=== PATIENT | female | born 1980 | race Caucasian/White ===

== ENCOUNTER → 2017-03-08 | Outpatient (CLI) | payer OTHER | LOC: RAD 12:34 | PROVIDERS: ATTEND Obstetrics & Gynecology | DX: Z12.31 Encounter for screening mammogram for malignant neoplasm of breast (principal) | CPT/HCPCS: 77067 ==

== ENCOUNTER 2018-04-18 07:22 | Inpatient (IN) | payer OTHER ==
[~2018-04-18] VITALS: Ht 165.1 cm; Wt 76.7 kg
[2018-04-18] VITALS (64 sets, daily range): BP systolic 103–159; BP diastolic 54–93
--- OUTSIDE RECORDS SUMMARY | 2018-04-18 07:29 | XMS REPORT | Continuity of Care Document ---
Author Author [facility] Organization [facility] Address Unknown Phone Unavailable Allergies There is no data. Medications There is no data. Problems Date Dx Coded Attending Type Code Diagnosis Diagnosed By 03/09/2017 GRANT ALVARADO MD, Ot Z12.31 ENCNTR SCREEN MAMMOGRAM FOR MALIGNANT NE 03/14/2017 GRANT ALVARADO MD, Ot Z12.31 ENCNTR SCREEN MAMMOGRAM FOR MALIGNANT NE 03/26/2017 GRANT ALVARADO MD, Ot Z12.31 ENCNTR SCREEN MAMMOGRAM FOR MALIGNANT NE Procedures There is no data. Results There is no data. Encounters ACCT No. Visit Date/Time Discharge Status Pt. Type Provider Facility Loc./Unit Complaint [id number] 03/08/2017 12:34:00 03/08/2017 23:59:59 CLS Outpatient GRANT ALVARADO MD [facility] RAD SCREENING [id number] 12/20/2012 09:19:00 12/20/2012 23:59:59 CLS Outpatient [id number] 05/27/2017 16:49:10 05/27/2017 23:59:59 CLS Outpatient
[2018-04-18] MEDS ORDERED: AMPICILLIN FOR IV USE 2,000 MG in NS (IVPB) 50 ML IV NR (07:45)
--- NOTE | 2018-04-18 07:45 | History & Physical ---
History and Physical Date Seen by Provider: Apr 18, 2018 Time Seen by Provider: 07:42 This patient is a 37-year-old G1 white female with an EDC of April 20, 2018. Admitted now for induction of labor at 39-5/7 weeks. history is significant GBS positive culture 35 weeks. Patient denies rupture membranes or bleeding. Has had no problems with his to date. Allergies are none Medications are vitamins Medical social and surgical histories are per the antepartum record HEENT exam is normal Neck supple no lymphadenopathy no thyromegaly Abdomen gravid soft nontender nondistended Extremities show no clubbing cyanosis. There is no Homans sign. Pelvic exam is pending Assessment and plan term at 39+ weeks' gestation admitted for induction of labor. Plan is for GBS prophylaxis with ampicillin TIUP - Elective IOL Allergies and Home Medications Allergies Coded Allergies: No Known Drug Allergies (Unverified , 04/18/18) Patient Home Medication List Home Medication List Reviewed: Yes GRANT ALVARADO MD Apr 18, 2018 7:45 am
[2018-04-18 07:58] LABS: BASOPHILS % (AUTO) 0 % (0-10); EOSINOPHILS # (AUTO) 0.1 10^3/uL (0.0-0.3); EOSINOPHILS % (AUTO) 1 % (0-10); HEMATOCRIT 32 % (35-52); LYMPHOCYTES # (AUTO) 1.6 X 10^3 (1.0-4.0); LYMPHOCYTES % (AUTO) 21 % (12-44); MEAN CORPUSCULAR HEMOGLOBIN 31 PG (25-34); MEAN CORPUSCULAR HGB CONC 35 G/DL (32-36); MEAN CORPUSCULAR VOLUME 89 FL (80-99); MEAN PLATELET VOLUME 11.8 FL (7.4-10.4); MONOCYTES # (AUTO) 0.6 X 10^3 (0.0-1.0); MONOCYTES % (AUTO) 8 % (0-12); NEUTROPHILS # (AUTO) 5.3 X 10^3 (1.8-7.8); NEUTROPHILS % (AUTO) 69 % (42-75); PLATELET COUNT 115 10^3/uL (130-400); RED BLOOD COUNT 3.57 10^6/uL (4.35-5.85); RED CELL DISTRIBUTION WIDTH 14.2 % (10.0-14.5); WHITE BLOOD COUNT 7.6 10^3/uL (4.3-11.0)
[2018-04-18] MEDS ORDERED: CATHETER FLUSH 10 ML SYR IV PRN ×2 (08:00→13:15)
[2018-04-18] MEDS: D5 LR IV SOLUTION 1,000 ML IV SCH ×2 (08:11→15:45)
[2018-04-18] MEDS: OXYTOCIN/NORMAL SALINE 500 ML IV SCH ×2 (08:12→23:18)
[2018-04-18] MEDS ORDERED: PNV11TAB5 PO (08:17)
[2018-04-18] MEDS ORDERED: FLU QUADRIvalent (5+ YOA) 2018-2019 (AFLURIA) 0.5 ML IM ONE (08:45)
[2018-04-18] MEDS ORDERED: LACTATED RINGERS 1,000 ML IV ONE ×2 (11:56→13:04)
[2018-04-18] MEDS: AMPICILLIN FOR IV USE 1,000 MG in NS (IVPB) 50 ML IV SCH ×3 (11:57→20:10)
[2018-04-18] MEDS ORDERED: SUFENTA 0.6MCG/ML BUPIVA 0.125 100 ML ONE (11:57)
[2018-04-18] MEDS ORDERED: BUPIVACAINE 0.25% 30 ML (SENSORCAINE) VIAL ONE (12:33)
[2018-04-18] MEDS ORDERED: fentaNYL INJECTION 100 MCG/2 ML AMP ONE (12:34)
[2018-04-18] MEDS ORDERED: NALOXONE 0.4 MG/ML 1 ML (NARCAN) VIAL IV PRN (13:15)
[2018-04-18] MEDS ORDERED: EPIDURAL (SUFENTA 0.6MCG/ML BUPIVA 0.125%) 100 ML BAG EPI SCH (13:15)
[2018-04-18] MEDS ORDERED: CITRIC ACID/SOB CIT (BICITRA) 30 ML UDC PO ONE (17:30)
[2018-04-18] MEDS ORDERED: LIDOCAINE/EPI 2% 1:200,00 (XYLOCAINE) 10 ML VIAL ONE ×2 (20:20→20:22)
[2018-04-18] MEDS ORDERED: IBUPROFEN 800 MG (MOTRIN) TAB PO ONE (23:13)
[2018-04-18] MEDS ORDERED: BENZOCAINE/MENTHOL (DERMOPLAST) 56 ML CAN TP PRN (23:15)
[2018-04-18] MEDS ORDERED: ONDANSETRON 4 MG/2 ML (SDV) Z0FRAN IVP PRN (23:15)
[2018-04-18] MEDS ORDERED: OXYTOCIN/NORMAL SALINE 500 ML IV SCH (23:15)
[2018-04-18] MEDS ORDERED: oxyCODONE/APAP 5/325MG (PERCOCET 5) TABLET PO PRN (23:15)
[2018-04-18] MEDS ORDERED: TETANUS,DIPTH,PERTUSS P/F (BOOSTRIX) 0.5 ML VIAL IM ONE (23:15)
[2018-04-18] MEDS ORDERED: KETOROLAC 30 MG/ML VIAL IV SCH (23:15)
[2018-04-18] MEDS: IBUPROFEN 800 MG (MOTRIN) TAB PO SCH (23:19)
[2018-04-19] VITALS: BP 136/72
[2018-04-19 00:16] VITALS: BP 125/63
[2018-04-19 00:30] VITALS: BP 128/72
--- NOTE | 2018-04-19 01:42 | OPERATIVE REPORT ---
In DATE OF SERVICE: 04/18/2018 DELIVERY NOTE The patient delivered by term spontaneous vaginal delivery a viable female with Apgars of 9 and 9 at 1 and 5 minutes respectively, weight of 9 pounds and 10 ounces. time of 2151. Cord blood pH that is pending. There was a mild shoulder dystocia encountered that was easily released. The patient pushed the baby down on the perineum. There was obviously inadequate room at the introitus for delivery. Episiotomy was performed under the epidural, augmented with local analgesia using lidocaine and the perineal body. Episiotomy was performed. The mom continued to push as the baby delivered. A fourth-degree extension of the episiotomy occurred. The head delivered over the perineum as the fourth-degree occurred and then there was a mild shoulder dystocia that was relieved with Joe and suprapubic pressure to the patient's right from her left rotating the shoulders just a few degrees and then the delivery was accomplished in less than 20 seconds after delivery of the head, the was bulb suctioned on completion of delivery. The was somewhat shell-shocked initially, but recovered promptly. Again, Apgars were 9 and 9. The infant moved all extremities, had excellent tone and reflexes within a few seconds of being dried and stimulated after delivery. had a lusty cry and was quickly pink. The umbilical cord when pulseless was doubly clamped, the father cut the cord, the baby was passed to mom's abdomen. The placenta delivered spontaneously Villalba. It was quite large and it was a battledore placenta with a 3-vessel cord. The cervix, vagina, rectum and perineum were examined and found intact, except for the fourth-degree extension of the midline episiotomy that was repaired with 3 separate sutures of 3-0 Vicryl Rapide using a suture on the rectal mucosa closing that in a running subcuticular manner to rich the mucosal edge back into the rectum. The sphincter muscle was repaired with the second suture and then a third suture was used to repair the vaginal mucosa and the perineal skin. Good reapproximation was achieved. Good hemostasis was achieved. The patient tolerated the delivery and the repair well. Estimated blood loss was around 400 mL for the delivery and the repair. Sponge and needle counts were correct on completion of delivery and repair. The patient remained in the LDR for recovery. The baby remained with the mom. Job ID: [id number] DocumentID: [id number] Dictated Date: 04/18/2018 22:43:22 Rug Drying Machine Operator Date: 04/19/2018 01:41:53 Dictated By: GRANT ALVARADO MD MTDD
[2018-04-19 04:10] VITALS: BP 108/66
[2018-04-19] MEDS: AMPICILLIN FOR IV USE 1,000 MG in NS (IVPB) 50 ML IV SCH ×2 (06:30→06:32)
[2018-04-19] MEDS: D5 LR IV SOLUTION 1,000 ML IV SCH ×2 (06:30→06:32)
--- NOTE | 2018-04-19 07:35 | Progress Note-Standard ---
Standard Progress Note Progress Notes/Assess & Plan Date Seen by a Provider: Apr 19, 2018 Time Seen by a Provider: 07:34 Progress/Assessment & Plan This patient is without complaint. She is ambulating, voiding, tolerating oral intake well has good pain control. Vital Signs 04/19/18 04:10 Temp 98.2 Pulse 88 Resp 18 B/P (MAP) 108/66 (80) Pulse Ox 95 O2 Delivery Room Air Vital signs are stable. Patient is afebrile. Fundus is firm below the umbilicus and nontender. Extreme show no clubbing or cyanosis. There is no Homans sign. Assessment and plan post arm day number 1 doing well plan is routine convalescence care GRANT ALVARADO MD Apr 19, 2018 7:35 am
[2018-04-19] MEDS ORDERED: DOCU100C37 PO (07:37)
[2018-04-19] MEDS ORDERED: IBUP-1780 PO (07:37)
[2018-04-19] MEDS ORDERED: OXYC1TAB87 PO (07:37)
--- NOTE | 2018-04-19 07:41 | Discharge Instructions ---
Discharge Instructions Discharge Medications New, Converted or Re-Newed RX: RX on Chart Patient Instructions Patient Instructions: As directed Return to The Hospital For: As directed Activity & Diet Discharge Diet: No Restrictions Activity as Tolerated: No Orders-Post D/C & Referrals Follow Up Appt: Call to make follow up appt. for patient in 4 weeks. Activity Per routine post vaginal delivery instructions. Diet as tolerated Patient may shower or tub bathe as desired. GRANT ALVARADO MD Apr 19, 2018 7:40 am
[2018-04-19 08:00] VITALS: BP 119/75
[2018-04-19] MEDS: DOCUSATE SODIUM 100 MG (COLACE) CAP PO SCH ×2 (08:00→20:58)
[2018-04-19] MEDS ORDERED: IBUPROFEN 800 MG (MOTRIN) TAB PO ONE ×2 (11:30→17:56)
[2018-04-19] MEDS ORDERED: IBUPROFEN 600 MG (MOTRIN) TAB PO ONE (11:30)
[2018-04-19] MEDS: IBUPROFEN 800 MG (MOTRIN) TAB PO SCH ×2 (11:34→23:59)
--- NOTE | 2018-04-19 15:24 | Anesthesia-Regional Post-Op ---
Regional Patient Condition Mental Status: Alert, Oriented x3 Circulation: Same as Pre-Op Headache: Absent Sensation: Full Recovery Motor Block: Absent Post Op Complications Complications None Follow Up Care/Instructions Patient Instructions None needed. Anesthesia/Patient Condition Patient is doing well, no complaints, stable vital signs, no apparent adverse anesthesia problems. DUONG BARON DO Apr 19, 2018 15:24
[2018-04-19 20:55] VITALS: BP 122/78
[2018-04-20 03:04] VITALS: BP 113/69
[2018-04-20] MEDS: IBUPROFEN 800 MG (MOTRIN) TAB PO SCH (05:57)
--- NOTE | 2018-04-20 07:41 | Progress Note-Standard ---
Standard Progress Note Progress Notes/Assess & Plan Date Seen by a Provider: Apr 20, 2018 Time Seen by a Provider: 07:39 Progress/Assessment & Plan This patient is without complaint. She is ambulating, voiding, tolerating oral intake well has good pain control. Vital Signs 04/19/18 04:10 Temp 98.2 Pulse 88 Resp 18 B/P (MAP) 108/66 (80) Pulse Ox 95 O2 Delivery Room Air Vital signs are stable. Patient is afebrile. Fundus is firm below the umbilicus and nontender. Extreme show no clubbing or cyanosis. There is no Homans sign. Assessment and plan post arm day number 1 doing well plan is routine convalescence care April 20, 2018 Patient is without complaint. She is ambulating, voiding, tolerating oral intake well, patient is requesting discharge home. Patient has good pain control. Vital Signs 04/20/18 03:04 Temp 98.7 Pulse 79 Resp 18 B/P (MAP) 113/69 (84) Pulse Ox 97 O2 Delivery Room Air Vital signs are stable. Patient is afebrile. Fundus is firm below the umbilicus and nontender. John show no clubbing cyanosis. There is no Homans sign. Assessment and plan day number 2 status post spontaneous vaginal delivery doing well. Plan is for discharge home Final Diagnosis TSVD 39 WEEKS GRANT ALVARADO MD Apr 20, 2018 7:41 am
[2018-04-20] MEDS ORDERED: WITCH HAZEL(TUCKS) 40 EA JAR ONE (08:43)
[2018-04-20] MEDS ORDERED: DIBUCAINE (NUPERCAINAL) 1% OINT 30 GM ONE (08:43)
[2018-04-20] MEDS ORDERED: TETANUS,DIPTH,PERTUSS P/F (BOOSTRIX) 0.5 ML VIAL IM ONE (08:44)
[2018-04-20] MEDS: DOCUSATE SODIUM 100 MG (COLACE) CAP PO SCH (08:44)
[2018-04-20] MEDS ORDERED: FLU QUADRIvalent (5+ YOA) 2018-2019 (AFLURIA) 0.5 ML IM ONE (08:44)
[2018-04-20 08:45] VITALS: BP 121/76
[2018-04-20] MEDS ORDERED: WITCH HAZEL(TUCKS) 40 EA JAR TOP PRN (09:00)
[2018-04-20] MEDS ORDERED: DIBUCAINE (NUPERCAINAL) 1% OINT 30 GM TOP PRN (09:00)
[2018-04-20 10:55] VITALS: BP 121/76
== END 2018-04-20 10:55 | disposition home or self-care (01) | DRG 775 ==
LOC: LDRP 07:22
PROVIDERS: ADMIT Obstetrics & Gynecology; ATTEND Obstetrics & Gynecology
PROC: 10E0XZZ Delivery of Products of Conception, External Approach (ICD-10-PCS; principal; 2018-04-19)
PROC: 0DQP0ZZ Repair Rectum, Open Approach (ICD-10-PCS; 2018-04-19)
PROC: 0W8NXZZ Division of Female Perineum, External Approach (ICD-10-PCS; 2018-04-19)
DX: O66.0 Obstructed labor due to shoulder dystocia (principal); O70.3 Fourth degree perineal laceration during delivery; O43.193 Other malformation of placenta, third trimester; O99.820 Streptococcus B carrier state complicating pregnancy; Z3A.39 39 weeks gestation of pregnancy; Z37.0 Single live birth; Z23 Encounter for immunization
CPT/HCPCS: 36415; 85025; 86850; 86900; 86901; 90686; 90715

== ENCOUNTER 2018-05-28 07:22 | Emergency (ER) | payer OTHER ==
[~2018-05-28] VITALS: Ht 165.1 cm; Wt 56.7 kg
[~2018-05-28 07:22] MED LIST: DOCU100C37 PO; IBUP-1780 PO; OXYC1TAB87 PO; PNV11TAB5 PO
--- OUTSIDE RECORDS SUMMARY | 2018-05-28 07:27 | XMS REPORT | Continuity of Care Document ---
Author Author [facility] Organization [facility] Address Unknown Phone Unavailable Allergies Active Description Code Type Severity Reaction Onset Reported/Identified Relationship to Patient Clinical Status Yes No Known Drug Allergies [id number] Drug Allergy Unknown N/A 04/18/2018 Medications There is no data. 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, THIRD TR 04/20/2018 GRANT ALVARADO MD, Ot O66.0 OBSTRUCTED LABOR DUE TO SHOULDER DYSTOCI 04/20/2018 GRANT ALVARADO MD, Ot O70.3 FOURTH DEGREE PERINEAL LACERATION DURING 04/20/2018 GRANT ALVARADO MD, Ot O99.820 STREPTOCOCCUS B CARRIER STATE COMPLICATI 04/20/2018 GRANT ALVARADO MD, Ot Z23 ENCOUNTER FOR IMMUNIZATION 04/20/2018 GRANT ALVARADO MD, Ot Z37.0 SINGLE LIVE 04/20/2018 GRANT ALVARADO MD, Ot Z3A.39 39 WEEKS GESTATION OF Procedures Code Description Performed By Performed On [id number] REPAIR RECTUM, OPEN APPROACH 04/19/2018 [id number] DIVISION OF FEMALE PERINEUM, EXTERNAL AP 04/19/2018 [id number] DELIVERY OF PRODUCTS OF CONCEPTION, EXTE 04/19/2018 Results Test Result Range Complete blood count (CBC) with automated white blood cell (WBC) differential - 04/18/18 07:41 Blood leukocytes automated count (number/volume) 7.6 10*3/uL 4.3-11.0 Blood erythrocytes automated count (number/volume) 3.57 10*6/uL 4.35-5.85 Venous blood hemoglobin measurement (mass/volume) 11.0 g/dL 11.5-16.0 Blood hematocrit (volume fraction) 32 % 35-52 Automated erythrocyte mean corpuscular volume 89 [foz_us] 80-99 Automated erythrocyte mean corpuscular hemoglobin (mass per erythrocyte) 31 pg 25-34 Automated erythrocyte mean corpuscular hemoglobin concentration measurement ( mass/volume) 35 g/dL 32-36 Automated erythrocyte distribution width ratio 14.2 % 10.0-14.5 Automated blood platelet count (count/volume) 115 10*3/uL 130-400 Automated blood platelet mean volume measurement 11.8 [foz_us] 7.4-10.4 Automated blood neutrophils/100 leukocytes 69 % 42-75 Automated blood lymphocytes/100 leukocytes 21 % 12-44 Blood monocytes/100 leukocytes 8 % 0-12 Automated blood eosinophils/100 leukocytes 1 % 0-10 Automated blood basophils/100 leukocytes 0 % 0-10 Blood neutrophils automated count (number/volume) 5.3 10*3 1.8-7.8 Blood lymphocytes automated count (number/volume) 1.6 10*3 1.0-4.0 Blood monocytes automated count (number/volume) 0.6 10*3 0.0-1.0 Automated eosinophil count 0.1 10*3/uL 0.0-0.3 Automated blood basophil count (count/volume) 0.0 10*3/uL 0.0-0.1 Blood type T Indirect antibody screen panel - 04/18/18 07:41 ABO+Rh group AP NRG Transfusion band number [id number] NRG Blood group antibody screen NEGATIVE NRG Encounters ACCT No. Visit Date/Time Discharge Status Pt. Type Provider Facility Loc./Unit Complaint [id number] 04/18/2018 07:22:00 04/20/2018 10:55:00 DIS Inpatient CHRISTIANO PRINCE, GRANT Mcgregor [facility] LDRP INDUCTION OF LABOR [id number] 03/08/2017 12:34:00 03/08/2017 23:59:59 CLS Outpatient CHRISTIANO PRINCE, GRANT Mcgregor [facility] RAD SCREENING [id number] 12/20/2012 09:19:00 12/20/2012 23:59:59 CLS Outpatient [id number] 05/27/2017 16:49:10 05/27/2017 23:59:59 CLS Outpatient
[2018-05-28] MEDS ORDERED: CEPH-507 PO (08:06)
[2018-05-28] MEDS ORDERED: NS (IVPB) 50 ML ONE (08:20)
[2018-05-28] MEDS ORDERED: cefTRIAXone 2 GM/20 ML for IV (ROCEPHIN) ONE (08:20)
[2018-05-28] MEDS ORDERED: fentaNYL INJECTION 100 MCG/2 ML AMP ONE (08:20)
[2018-05-28] MEDS ORDERED: cefTRIAXone FOR IV USE 2,000 MG in NS (IVPB) 50 ML IV ONE (08:30)
[2018-05-28] MEDS ORDERED: fentaNYL INJECTION 100 MCG/2 ML AMP IVP ONE (08:30)
[2018-05-28 08:32] LABS: BASOPHILS % (AUTO) 0 % (0-10); EOSINOPHILS # (AUTO) 0.6 10^3/uL (0.0-0.3); EOSINOPHILS % (AUTO) 7 % (0-10); HEMATOCRIT 36 % (35-52); HEMOGLOBIN 11.9 G/DL (11.5-16.0); LYMPHOCYTES # (AUTO) 0.5 X 10^3 (1.0-4.0); LYMPHOCYTES % (AUTO) 7 % (12-44); MEAN CORPUSCULAR HEMOGLOBIN 29 PG (25-34); MEAN CORPUSCULAR HGB CONC 33 G/DL (32-36); MEAN CORPUSCULAR VOLUME 88 FL (80-99); MEAN PLATELET VOLUME 11.2 FL (7.4-10.4); MONOCYTES # (AUTO) 0.6 X 10^3 (0.0-1.0); MONOCYTES % (AUTO) 7 % (0-12); NEUTROPHILS # (AUTO) 5.8 X 10^3 (1.8-7.8); NEUTROPHILS % (AUTO) 78 % (42-75); PLATELET COUNT 122 10^3/uL (130-400); RED BLOOD COUNT 4.13 10^6/uL (4.35-5.85); RED CELL DISTRIBUTION WIDTH 14.1 % (10.0-14.5); WHITE BLOOD COUNT 7.4 10^3/uL (4.3-11.0)
--- NOTE | 2018-05-28 08:33 | ED Integumentary General ---
General Chief Complaint: Skin/Wound Problems Stated Complaint: CLOGGED DUCT Nursing Triage Note: PT CO OF L BREAST PAIN, PT IS PUMPING BREAST MILK, PT STATES HAS HAD FEVER, L BREAST IS REDDEND, WARM TO TOUCH, PAINFUL. PT STATES HAS BEEN ON KEFLEX 500MG PO SINCE TUESDAY AND MOTRIN 800MG. PT STATES FEELS WORSE AND LOOKS LIKE REDDEND AREA GETTING BIGGER PT IS 6 WEEKS POST DELIVERY Source: patient, family Exam Limitations: no limitations History of Present Illness Date Seen by Provider: May 28, 2018 Time Seen by Provider: 08:29 Initial Comments This 38-year-old white female presents with progressive mastitis of the left breast over the last 2 days. Patient has been on Keflex 500 mg twice a day since onset without improvement. ADM patient is pumping her left breast. Although painful she has been successful with this operation. The patient is been using ibuprofen with progressively less success. She had a fever on Tuesday. The patient denies associated headache or stiff neck, photophobia, productive cough, nausea, vomiting, or diarrhea. Allergies and Home Medications Allergies Coded Allergies: No Known Drug Allergies (Unverified , 04/18/18) Home Medications Cephalexin 500 Mg Capsule, 500 MG PO BID, (Reported) Ibuprofen 800 Mg Tablet, 800 MG PO Q6H Prescribed by: GRANT FRANCIS on 04/19/18 0737 Ilf795/FA/Omega3/Dha/Fish Oil 1 Each Tab.chew, 2 EACH PO DAILY, (Reported) Patient Home Medication List Home Medication List Reviewed: Yes Review of Systems Review of Systems Constitutional: fever (on Tuesday.) EENTM: No ear pain Respiratory: No cough Cardiovascular: No chest pain Gastrointestinal: no symptoms reported; No abdominal pain Genitourinary: no symptoms reported : No Musculoskeletal: no symptoms reported Skin: see HPI, other (mastitis left breast) Psychiatric/Neurological: No Symptoms Reported Endocrine: No Symptoms Reported Hematologic/Lymphatic: No Symptoms Reported Past Zrdhmbu-Junjwo-Vhhtav Hx Past Med/Social Hx: Reviewed Nursing Past Med/Soc Hx Patient Social History Alcohol Use: Occasionally Uses Recreational Drug Use: No Smoking Status: Former Smoker Type Used: Cigarettes Former Smoker, Quit: Jan 29, 2006 Recent Foreign Travel: No Contact w/Someone Who Travel: No Recent Infectious Disease Expo: No Recent Hopitalizations: No Immunizations Up To Date PED Vaccines UTD: Yes Seasonal Allergies Seasonal Allergies: Yes Past Medical History Surgeries: Yes ([place] Teeth) Respiratory: No Cardiac: No Neurological: No : No Female Reproductive Disorders: Denies Sexually Transmitted Disease: No HIV/AIDS: No Genitourinary: No Gastrointestinal: No Musculoskeletal: No Endocrine: No HEENT: No Loss of Vision: Denies Hearing Impairment: Denies Cancer: No Psychosocial: No Integumentary: No Blood Disorders: No Adverse Reaction/Blood Tranf: No Family Medical History Alcoholism 19 FATHER Alzheimer's disease Grandparents (Maternal Grandfather) Asthma 19 MOTHER Cataracts Grandparents (Maternal Grandfather) Colon cancer Grandparents (Paternal Grandmother?) Completed stroke Grandparents (Maternal Grandmother) Drug abuse 19 FATHER (Narcotics) FH: leukemia Grandparents (Paternal Grandparents) Hypercholesterolemia 19 FATHER Grandparents (Paternal Grandfather) Hypertension 19 FATHER Grandparents (Paternal Grandfather) Neoplasm Grandparents (Paternal Grandfather) Not obtainable due to adoption Respiratory disorder Grandparents (Paternal Grandfather-COPD) Visual disorder Grandparents (Maternal Grandfather-Cataracts) Physical Exam Vital Signs Vital Signs - First Documented 05/28/18 07:50 Temp 97.8 Pulse 88 Resp 18 B/P (MAP) 108/66 (80) Pulse Ox 97 Capillary Refill : Less Than 3 Seconds General Appearance: WD/WN, mild distress HEENT: normal ENT inspection Neck: full range of motion, normal inspection Cardiovascular: regular rate, rhythm Respiratory: lungs clear, normal breath sounds Gastrointestinal: non tender, soft Back: normal inspection Extremities: normal range of motion, normal inspection Neurologic/Psychiatric: no motor/sensory deficits, alert, normal mood/affect, oriented x 3 Skin: normal color, warm/dry, other (there is inflammation to the left breast extending from the nipple and pasty really to approximately a 6 cm diameter at the left breast. There is tenderness to palpation. There is no fluctuance appreciated. NextI expressed a small amount of milk from the a.m. left nipple and obtained a culture and sensitivity.) Skin Problem Location: other (cellulitis left breast) Skin Problem Character: erythema, tenderness Progress/Results/Core Measures Results/Orders Lab Results Laboratory Tests Test 05/28/18 08:15 Range/Units White Blood Count 7.4 4.3-11.0 10^3/uL Red Blood Count 4.13 L 4.35-5.85 10^6/uL Hemoglobin 11.9 11.5-16.0 G/DL Hematocrit 36 35-52 % Mean Corpuscular Volume 88 80-99 FL Mean Corpuscular Hemoglobin 29 25-34 PG Mean Corpuscular Hemoglobin Concent 33 32-36 G/DL Red Cell Distribution Width 14.1 10.0-14.5 % Platelet Count 122 L 130-400 10^3/uL Mean Platelet Volume 11.2 H 7.4-10.4 FL Neutrophils (%) (Auto) 78 H 42-75 % Lymphocytes (%) (Auto) 7 L 12-44 % Monocytes (%) (Auto) 7 0-12 % Eosinophils (%) (Auto) 7 0-10 % Basophils (%) (Auto) 0 0-10 % Neutrophils # (Auto) 5.8 1.8-7.8 X 10^3 Lymphocytes # (Auto) 0.5 L 1.0-4.0 X 10^3 Monocytes # (Auto) 0.6 0.0-1.0 X 10^3 Eosinophils # (Auto) 0.6 H 0.0-0.3 10^3/uL Basophils # (Auto) 0.0 0.0-0.1 10^3/uL Neutrophils % (Manual) 83 % Lymphocytes % (Manual) 6 % Monocytes % (Manual) 5 % Eosinophils % (Manual) 3 % Band Neutrophils 3 % Blood Morphology Comment NORMAL My Orders Orders - JEFF VARGAS MD Fentanyl Injection (Sublimaze Injection (05/28/18 08:20) Ceftriaxone For Iv Use (Rocephin For I (05/28/18 08:20) Ns (Ivpb) (Sodium Chloride 0.9% Ivpb Bag (05/28/18 08:20) Cbc With Automated Diff (05/28/18 08:25) Fentanyl Injection (Sublimaze Injection (05/28/18 08:30) Ceftriaxone For Iv Use (Rocephin For I (05/28/18 08:30) Manual Differential (05/28/18 08:15) Ns Iv 1000 Ml (Sodium Chloride 0.9%) (05/28/18 08:43) Body Fluid Culture (05/28/18 08:53) Oxycodone/Apap 5/325mg Tablet (Percocet (05/28/18 09:00) Medications Given in ED Current Medications Medications Dose Ordered Sig/Sp Route Start Time Stop Time Status Last Admin Dose Admin Ceftriaxone Sodium 2000 mg/ Sodium Chloride 50 ml @ 100 mls/hr ONCE ONCE IV 05/28/18 08:30 05/28/18 08:59 DC 05/28/18 08:31 100 MLS/HR Fentanyl Citrate 50 mcg ONCE ONCE IVP 05/28/18 08:30 05/28/18 08:31 DC 05/28/18 08:30 50 MCG Sodium Chloride 1,000 ml @ ud STK-MED ONCE .ROUTE 05/28/18 08:43 05/28/18 08:44 DC 05/28/18 08:45 1,000 MLS/HR Vital Signs/I&O 05/28/18 07:50 Temp 97.8 Pulse 88 Resp 18 B/P (MAP) 108/66 (80) Pulse Ox 97 Blood Pressure Mean: 80 Progress Progress Note : Time: 09:23 Progress Note The patient received 2 g of Rocephin IV and 50 g of fentanyl IV with good improvement of her pain. Patient has not been drinking well in the last 24 hours. She was given a liter of normal saline. The patient's CBC was essentially normal. I discussed the patient's presentation with Dr. Sarabia. It was her recommendation that we place the patient on dicloxacillin. I gave her a prescription for 500 mg 4 times a day for 10 days. In addition I prescribed Percocet 5/325 20 tablets 1-2 every 4-6 as needed for pain. Finally the patient was given a prescription for clotrimazole topical to be mixed with over- the-counter hydrocortisone cream and applied twice a day to the left nipple. The patient and were asked to follow-up with Erin Parker, trading specialist, tomorrow. I invited her to return if she any further problems or questions emergency department. Departure Impression Primary Impression: Mastitis Disposition: 01 HOME, SELF-CARE Condition: Improved Departure-Patient Inst. Decision time for Depature: 09:26 Referrals: ALISON DOWNS MD (PCP/Family) Primary Care Physician GRANT ALVARADO MD Patient Instructions: Mastitis (DC) Add. Discharge Instructions: Dicloxacillin, Percocet, and clotrimazole topical with [id number] hydrocortisone cream as prescribed. Close follow-up with Matilda Parker tomorrow. Return if any problems or questions. Continue pumping. Moist heating pads to the left breast. All discharge instructions reviewed with patient and/or family. Voiced understanding. JEFF VARGAS MD May 28, 2018 08:33
[2018-05-28] MEDS ORDERED: NS IV 1000 ML 1,000 ML ONE (08:43)
[2018-05-28 08:56] LABS: BAND NEUTROPHILS 3 %; EOSINOPHILS % (MANUAL) 3 %; LYMPHOCYTES % (MANUAL) 6 %; MONOCYTES % (MANUAL) 5 %; NEUTROPHILS % (MANUAL) 83 %; RBC MORPH NORMAL
[2018-05-28] MEDS ORDERED: oxyCODONE/APAP 5/325MG (PERCOCET 5) TABLET PO ONE (09:00)
[2018-05-28 09:56] VITALS: BP 108/66
[2018-05-29] MEDS ORDERED: DICL500C PO (11:32)
[2018-05-29] MEDS ORDERED: OXYC1TAB87 PO (11:32)
== END 2018-05-28 09:56 | disposition home or self-care (01) ==
LOC: EDUNIT# 07:22 → ER 07:23
DX: N61.0 Mastitis without abscess (principal); Z87.891 Personal history of nicotine dependence; Z80.0 Family history of malignant neoplasm of digestive organs; Z80.6 Family history of leukemia
CPT/HCPCS: 36415; 85007; 85027; 87070; 87077; 87205; 99282

== ENCOUNTER 2018-05-29 10:48 | Emergency (ER) | payer OTHER ==
[~2018-05-29] VITALS: Ht 165.1 cm; Wt 56.7 kg
[~2018-05-29 10:48] MED LIST changes: +CEPH-507 PO
[2018-05-29] MEDS ORDERED: DICL500C PO (11:32)
[2018-05-29] MEDS ORDERED: OXYC1TAB87 PO (11:32)
--- NOTE | 2018-05-29 12:24 | ED Integumentary General ---
General Chief Complaint: Skin/Wound Problems Stated Complaint: MASTITIS Nursing Triage Note: pt seen in this ED yesterday for an abcess of the left breast. discharged and asked to follow up with OB provider. OB provider advised pt to return to the ED today for ultrsound. Pt vernalized area of concern is reddened and inflammed, sensitive to touch. Source: patient, family () Exam Limitations: no limitations History of Present Illness Date Seen by Provider: May 29, 2018 Time Seen by Provider: 11:45 Initial Comments Patient is a 38-year-old female who presents to the emergency room with complaints of mastitis to her left breast. Seen in the emergency room yesterday where she was given IV antibiotics and changed prescription of Keflex that she was previously on to dicloxacillin and was given a prescription for Percocet. She made follow-up appointments for Dr. Dwyer's office and a dictation consult for today but after Reymundo's office sent her out to the emergency room for ultrasound of her breast looking for abscess. Her thinks the area of redness is more red today than it was yesterday. She reports she took a Percocet this morning and has controlled her pain level. Timing/Duration: yesterday Location: torso Possible Cause: no cause identified (left breast) Associated Symptoms: No fever; swelling/mass/lumps (left breast redness, swelling engorgement) Allergies and Home Medications Allergies Coded Allergies: No Known Drug Allergies (Unverified , 04/18/18) Home Medications Cephalexin 500 Mg Capsule, 500 MG PO BID, (Reported) Ibuprofen 800 Mg Tablet, 800 MG PO Q6H Prescribed by: GRANT FRANCIS on 04/19/18 0737 Oxycodone HCl/Acetaminophen 1 Each Tablet, 1 EACH PO Q4H PRN for PAIN-MODERATE, (Reported) Jpr406/FA/Omega3/Dha/Fish Oil 1 Each Tab.chew, 2 EACH PO DAILY, (Reported) Patient Home Medication List Home Medication List Reviewed: Yes Review of Systems Review of Systems Constitutional: see HPI; No chills, No fever Skin: see HPI, change in color (redness to left breast ), other (swelling to left breast ) All Other Systems Reviewed Negative Unless Noted: Yes Past Wyrbtle-Vnyxzu-Ogkiyu Hx Past Med/Social Hx: Reviewed Nursing Past Med/Soc Hx Patient Social History Type Used: Cigarettes Former Smoker, Quit: Jan 29, 2006 Recent Foreign Travel: No Contact w/Someone Who Travel: No Recent Infectious Disease Expo: No Recent Hopitalizations: No Immunizations Up To Date PED Vaccines UTD: Yes Seasonal Allergies Seasonal Allergies: Yes Past Medical History Surgeries: Yes ([place] [facility]) Respiratory: No Cardiac: No Neurological: No : No (6 weeks post ) Last Menstrual Period: Jun 16, 2017 Female Reproductive Disorders: Denies Sexually Transmitted Disease: No HIV/AIDS: No Genitourinary: No Gastrointestinal: No Musculoskeletal: No Endocrine: No HEENT: No Loss of Vision: Denies Hearing Impairment: Denies Cancer: No Psychosocial: No Integumentary: No Blood Disorders: No Adverse Reaction/Blood Tranf: No Family Medical History Reviewed Nursing Family Hx Alcoholism 19 FATHER Alzheimer's disease Grandparents (Maternal Grandfather) Asthma 19 MOTHER Cataracts Grandparents (Maternal Grandfather) Colon cancer Grandparents (Paternal Grandmother?) Completed stroke Grandparents (Maternal Grandmother) Drug abuse 19 FATHER (Narcotics) FH: leukemia Grandparents (Paternal Grandparents) Hypercholesterolemia 19 FATHER Grandparents (Paternal Grandfather) Hypertension 19 FATHER Grandparents (Paternal Grandfather) Neoplasm Grandparents (Paternal Grandfather) Not obtainable due to adoption Respiratory disorder Grandparents (Paternal Grandfather-COPD) Visual disorder Grandparents (Maternal Grandfather-Cataracts) Physical Exam Vital Signs Vital Signs - First Documented 05/29/18 11:13 Temp 97.3 Pulse 103 Resp 18 B/P (MAP) 126/98 (107) O2 Delivery Room Air Capillary Refill : Less Than 3 Seconds General Appearance: WD/WN, no apparent distress Cardiovascular: normal peripheral pulses, regular rate, rhythm, no edema, no gallop, no JVD, no murmur Respiratory: chest non-tender, lungs clear, normal breath sounds, no respiratory distress, no accessory muscle use Neurologic/Psychiatric: alert, oriented x 3 Skin: normal color, warm/dry Skin Problem Location: torso (left breast) Skin Problem Character: erythema, swelling, tenderness, thickening, warm Lymphatic: no adenopathy Progress/Results/Core Measures Results/Orders Lab Results Laboratory Tests Test 10/29/18 12:13 Range/Units White Blood Count 5.7 4.3-11.0 10^3/uL Red Blood Count 3.81 L 4.35-5.85 10^6/uL Hemoglobin 11.0 L 11.5-16.0 G/DL Hematocrit 34 L 35-52 % Mean Corpuscular Volume 88 80-99 FL Mean Corpuscular Hemoglobin 29 25-34 PG Mean Corpuscular Hemoglobin Concent 33 32-36 G/DL Red Cell Distribution Width 13.6 10.0-14.5 % Platelet Count 196 130-400 10^3/uL Mean Platelet Volume 10.5 H 7.4-10.4 FL Neutrophils (%) (Auto) 64 42-75 % Lymphocytes (%) (Auto) 18 12-44 % Monocytes (%) (Auto) 11 0-12 % Eosinophils (%) (Auto) 8 0-10 % Basophils (%) (Auto) 0 0-10 % Neutrophils # (Auto) 3.7 1.8-7.8 X 10^3 Lymphocytes # (Auto) 1.0 1.0-4.0 X 10^3 Monocytes # (Auto) 0.6 0.0-1.0 X 10^3 Eosinophils # (Auto) 0.5 H 0.0-0.3 10^3/uL Basophils # (Auto) 0.0 0.0-0.1 10^3/uL Prothrombin Time 13.3 12.2-14.7 SEC INR Comment 1.0 0.8-1.4 Activated Partial Thromboplast Time 33 24-35 SEC Sodium Level 139 135-145 MMOL/L Potassium Level 3.9 3.6-5.0 MMOL/L Chloride Level 104 98-107 MMOL/L Carbon Dioxide Level 25 21-32 MMOL/L Anion Gap 10 5-14 MMOL/L Blood Urea Nitrogen 3 L 7-18 MG/DL Creatinine 0.59 L 0.60-1.30 MG/DL Estimat Glomerular Filtration Rate > 60 BUN/Creatinine Ratio 5 Glucose Level 104 70-105 MG/DL Lactic Acid Level 0.56 0.50-2.00 MMOL/L Calcium Level 9.6 8.5-10.1 MG/DL Corrected Calcium 9.7 8.5-10.1 MG/DL Total Bilirubin 0.4 0.1-1.0 MG/DL Aspartate Amino Transf (AST/SGOT) 19 5-34 U/L Alanine Aminotransferase (ALT/SGPT) 29 0-55 U/L Alkaline Phosphatase 79 40-136 U/L Total Protein 6.8 6.4-8.2 GM/DL Albumin 3.9 3.2-4.5 GM/DL Micro Results Microbiology 05/29/18 Blood Culture - Preliminary, Resulted No growth 05/29/18 Blood Culture - Preliminary, Resulted No growth My Orders Orders - SARAH MCGOWAN Cbc With Automated Diff (05/29/18 11:56) Comprehensive Metabolic Panel (05/29/18 11:56) Blood Culture (05/29/18 11:56) Protime With Inr (05/29/18 11:56) Partial Thromboplastin Time (05/29/18 11:56) Saline Lock/Iv-Start (05/29/18 11:56) Vital Signs Adult Sepsis Patie Q15M (05/29/18 11:56) Lactic Acid Analyzer (05/29/18 11:56) Us Breast Complete Left (05/29/18 11:51) Vital Signs/I&O 05/29/18 05/29/18 05/29/18 11:13 13:54 13:54 Temp 97.3 98.2 97.3 Pulse 103 96 97 Resp 18 18 18 B/P (MAP) 126/98 (107) 134/93 134/93 (107) Pulse Ox 96 100 O2 Delivery Room Air Room Air Room Air Blood Pressure Mean: 107 Progress Progress Note : Time: 13:30 Progress Note I have seen and evaluated the patient. I have informed her of her imaging studies and lab work. I have also discussed the finding with Dr. pacheco and he agrees that continuing the current abx and frequent pumping should alleviate complications. He will see her in his office next week or if sooner if needed. She agrees with plan of care, return precautions were given. Diagnostic Imaging Diagonstic Imaging: Ultrasound Plain Films/CT/US/NM/MRI: other Comments NAME: BA RAMOSRAJINDER Urbina [facility] REC#: [id number] PHYSICIAN: SARAH MCGOWAN CC: SARAH MCGOWAN; SAMPSON FRANCO MD Page 1 of 1 RADIOLOGY REPORT [facility], [place] CC: SARAH MCGOWAN; SAMPSON FRANCO MD Page 1 of 1 RADIOLOGY REPORT NAME: LEANDRO RAMOS [facility] REC#: [id number] PT STATUS: REG ER : 1980 PHYSICIAN: SARAH MCGOWAN ADMIT DATE: 05/29/18/ER Signed Date of Exam: 05/29/18 US BREAST COMPLETE LEFT INDICATION: Redness and tenderness in the left breast. TECHNIQUE: Sonographic interrogation of the left breast was performed to evaluate for abscess. All 4 quadrants as well as the retroareolar region were evaluated. FINDINGS: No fluid collection or abscess is identified. There are some mildly prominent dilated ducts. These are greatest at the 1 o'clock retroareolar location. No other abnormalities are seen. IMPRESSION: Mild ductal dilatation. There are no findings to suggest breast abscess. ACR BI-RADS Category 2: Benign findings. Dictated by: Dictated on workstation # [id number] Dict: 05/29/18 1334 Trans: 05/29/18 1555 Interpreted by: SAMPSON FRANCO MD Electronically signed by: SAMPSON FRANCO MD 05/29/18 1555 Reviewed: Reviewed by Me Departure Impression Primary Impression: Mastitis, left, acute Disposition: 01 HOME, SELF-CARE Condition: Stable/Unchanged Departure-Patient Inst. Decision time for Depature: 13:31 Referrals: ALISON DOWNS MD (PCP/Family) Primary Care Physician Patient Instructions: Mastitis (DC) Add. Discharge Instructions: Continue your home medications as previously prescribed. Follow-up with Dr. Dwyer's office within 1 week for recheck. Frequent pumping breast milk will help alleviate engorgement. Return back to the emergency room for any worsening symptoms or concerns as needed. All discharge instructions reviewed with patient and/or family. Voiced understanding. SARAH MCGOWAN May 29, 2018 12:24
[2018-05-29 12:26] LABS: BASOPHILS % (AUTO) 0 % (0-10); EOSINOPHILS # (AUTO) 0.5 10^3/uL (0.0-0.3); EOSINOPHILS % (AUTO) 8 % (0-10); HEMATOCRIT 34 % (35-52); LYMPHOCYTES % (AUTO) 18 % (12-44); MEAN CORPUSCULAR HEMOGLOBIN 29 PG (25-34); MEAN CORPUSCULAR HGB CONC 33 G/DL (32-36); MEAN CORPUSCULAR VOLUME 88 FL (80-99); MEAN PLATELET VOLUME 10.5 FL (7.4-10.4); MONOCYTES # (AUTO) 0.6 X 10^3 (0.0-1.0); MONOCYTES % (AUTO) 11 % (0-12); NEUTROPHILS # (AUTO) 3.7 X 10^3 (1.8-7.8); NEUTROPHILS % (AUTO) 64 % (42-75); PLATELET COUNT 196 10^3/uL (130-400); RED BLOOD COUNT 3.81 10^6/uL (4.35-5.85); RED CELL DISTRIBUTION WIDTH 13.6 % (10.0-14.5); WHITE BLOOD COUNT 5.7 10^3/uL (4.3-11.0)
[2018-05-29 12:36] LABS: PROTHROMBIN TIME PATIENT 13.3 SEC (12.2-14.7)
[2018-05-29 12:43] LABS: ALANINE AMINOTRANSFERASE 29 U/L (0-55); ALBUMIN 3.9 GM/DL (3.2-4.5); ALKALINE PHOSPHATASE 79 U/L (40-136); BILIRUBIN,TOTAL 0.4 MG/DL (0.1-1.0); BUN/CREATININE RATIO 5; CALCIUM 9.6 MG/DL (8.5-10.1); CARBON DIOXIDE 25 MMOL/L (21-32); CHLORIDE 104 MMOL/L (98-107); CREATININE SERUM 0.59 MG/DL (0.60-1.30); GFR ESTIMATED > 60; GLUCOSE 104 MG/DL (70-105); POTASSIUM 3.9 MMOL/L (3.6-5.0); SODIUM 139 MMOL/L (135-145); TOTAL PROTEIN 6.8 GM/DL (6.4-8.2)
--- OUTSIDE RECORDS SUMMARY | 2018-05-29 13:27 | XMS REPORT | Continuity of Care Document ---
Author Author [facility] Organization [facility] Address Unknown Phone Unavailable Allergies Active Description Code Type Severity Reaction Onset Reported/Identified Relationship to Patient Clinical Status Yes No Known Drug Allergies [id number] Drug Allergy Unknown N/A 04/18/2018 Medications There [...] Procedures Code Description Performed By Performed On [id number] REPAIR RECTUM, OPEN APPROACH 04/19/2018 [id number] DIVISION OF FEMALE PERINEUM, EXTERNAL AP 04/19/2018 [id number] DELIVERY OF PRODUCTS OF CONCEPTION, EXTE 04/19/2018 [...] ABO+Rh group AP NRG Transfusion band number [id number] Blood group antibody screen NEGATIVE NRG Gram stain microscopy - 05/28/18 08:10 Gram stain microscopy No bacteria seen NRG Complete blood count (CBC) with automated white blood cell (WBC) differential - 05/28/18 08:15 Blood leukocytes automated count (number/volume) 7.4 10*3/uL 4.3-11.0 Blood erythrocytes automated count (number/volume) 4.13 10*6/uL 4.35-5.85 Venous blood hemoglobin measurement (mass/volume) 11.9 g/dL 11.5-16.0 Blood hematocrit (volume fraction) 36 % 35-52 Automated erythrocyte mean corpuscular volume 88 [foz_us] 80-99 Automated erythrocyte mean corpuscular hemoglobin (mass per erythrocyte) 29 pg 25-34 Automated erythrocyte mean corpuscular hemoglobin concentration measurement ( mass/volume) 33 g/dL 32-36 Automated erythrocyte distribution width ratio 14.1 % 10.0-14.5 Automated blood platelet count (count/volume) 122 10*3/uL 130-400 Automated blood platelet mean volume measurement 11.2 [foz_us] 7.4-10.4 Automated blood neutrophils/100 leukocytes 78 % 42-75 Automated blood lymphocytes/100 leukocytes 7 % 12-44 Blood monocytes/100 leukocytes 7 % 0-12 Automated blood eosinophils/100 leukocytes 7 % 0-10 Automated blood basophils/100 leukocytes 0 % 0-10 Blood neutrophils automated count (number/volume) 5.8 10*3 1.8-7.8 Blood lymphocytes automated count (number/volume) 0.5 10*3 1.0-4.0 Blood monocytes automated count (number/volume) 0.6 10*3 0.0-1.0 Automated eosinophil count 0.6 10*3/uL 0.0-0.3 Automated blood basophil count (count/volume) 0.0 10*3/uL 0.0-0.1 Blood manual differential performed detection - 05/28/18 08:15 Blood monocytes/100 leukocytes 5 % NRG Manual blood segmented neutrophils/100 leukocytes 83 % NRG Blood band neutrophils/100 leukocytes 3 % NRG Manual blood lymphocytes/100 leukocytes 6 % NRG Manual eosinophils/100 leukocytes in nose 3 % NRG Blood erythrocyte morphology finding identification NORMAL NRG Encounters ACCT No. Visit Date/Time Discharge Status Pt. Type Provider Facility Loc./Unit Complaint [id number] 04/18/2018 07:22:00 04/20/2018 10:55:00 DIS Inpatient GRANT ALVARADO MD [facility] INDUCTION OF LABOR [id number] 03/08/2017 12:34:00 03/08/2017 23:59:59 CLS Outpatient BRETT ALVARADO MDNIS G [facility] RAD SCREENING [id number] 12/20/2012 09:19:00 12/20/2012 23:59:59 CLS Outpatient [id number] 05/28/2018 08:34:00 Document Registration [id number] 05/27/2017 16:49:10 05/27/2017 23:59:59 CLS Outpatient
--- NOTE | 2018-05-29 13:44 | Diagnostic Imaging Report ---
INDICATION: Redness and tenderness in the left breast. TECHNIQUE: Sonographic interrogation of the left breast was performed to evaluate for abscess. All 4 quadrants as well as the retroareolar region were evaluated. FINDINGS: No fluid collection or abscess is identified. There are some mildly prominent dilated ducts. These are greatest at the 1 o'clock retroareolar location. No other abnormalities are seen. IMPRESSION: Mild ductal dilatation. There are no findings to suggest breast abscess. ACR BI-RADS Category 2: Benign findings. Dictated by: Dictated on workstation # [id number]
[2018-05-29 13:54] VITALS: BP 134/93
== END 2018-05-29 13:54 | disposition home or self-care (01) ==
LOC: EDUNIT# 10:48 → ER 10:49
DX: N61.0 Mastitis without abscess (principal); Z87.891 Personal history of nicotine dependence; Z82.49 Family history of ischemic heart disease and other diseases of the circulatory system
CPT/HCPCS: 36415; 76641; 80053; 83605; 85025; 85610; 85730; 87040